=== PATIENT | male | born 1985 | race African-American/Black ===

== ENCOUNTER 2021-08-04 11:54 | Emergency (ER) | payer MEDICAID ==
[~2021-08-04] VITALS: Ht 175 cm; Wt 92.0 kg
[~2021-08-04 11:54] MED LIST: CYCL10TA25 PO; CYCL10TA9 PO; HYDR1TAB8 OP; NAPR-1071 PO; NAPR-243 PO; PRD20T PO
--- NOTE | 2021-08-04 12:04 | ED Lower Extremity ---
General Stated Complaint: L KNEE PAIN Source: patient Exam Limitations: no limitations History of Present Illness Date Seen by Provider: Aug 04, 2021 Time Seen by Provider: 12:00 Initial Comments To ER with left knee pain. He arrives by [facility]. He was at an event center for his nephew's birthday jumping on a trampoline with him. He came down and his knee stayed straight. The initial concern was for a kneecap dislocation as he has pain in the kneecap and is unable to extend his leg at the knee. Onset: just prior to arrival Severity: moderate Pain/Injury Location: left knee Method of Injury: other (Jumping) Allergies and Home Medications Allergies Coded Allergies: No Known Drug Allergies (Unverified , 03/05/12) Patient Home Medication List Home Medication List Reviewed: Yes Cyclobenzaprine HCl (Cyclobenzaprine HCl) 10 Mg Tablet, 10 MG PO Q8H PRN for SPASMS Prescribed by: BAMBI CANTOR on 05/13/161816 Hydrocodone Bit/Ibuprofen (Vicoprofen 200-7.5 Mg Tab) 1 Each Tablet, 1-2 EACH OP Q4-6HR PRN for PAIN Prescribed by: JANIA HOOD on 07/11/13 193 Hydrocodone/Acetaminophen (Hydrocodone-Acetamin 5-325 mg) 1 Each Tablet, 1 TAB PO Q4H PRN for PAIN-MODERATE (5-7) Prescribed by: JACOB JONES on 08/04/21 1240 Last Action: New Order Naproxen (Naprosyn) 500 Mg Tablet, 500 MG PO BID PRN for PAIN Prescribed by: BAMBI CANTOR on 05/13/161816 Prednisone (Prednisone) 20 Mg Tab, 40 MG PO DAILY Prescribed by: BAMBI CANTOR on 05/13/161816 Review of Systems Constitutional: see HPI EENTM: see HPI Respiratory: no symptoms reported Cardiovascular: no symptoms reported Genitourinary: no symptoms reported Musculoskeletal: no symptoms reported Skin: no symptoms reported Psychiatric/Neurological: No Symptoms Reported Past Qtnscsy-Gqnfgi-Txpuat Hx Seasonal Allergies Seasonal Allergies: No Past Medical History Asthma Family Medical History No Pertinent Family Hx Physical Exam Vital Signs Vital Signs - First Documented 08/04/21 11:55 Temp 36.4 Pulse 82 Resp 20 B/P (MAP) 134/66 (88) Pulse Ox 99 O2 Delivery Room Air Capillary Refill : Height, Weight, BMI Height: 5'10.00" Weight: 200lbs. oz. 90.967017em; 30.13 BMI Method:Stated General Appearance: WD/WN, no apparent distress, other (Alert and oriented no distress very pleasant. Offered pain medication but he declines.) HEENT: PERRL/EOMI, normal ENT inspection Neck: non-tender, full range of motion Respiratory: no respiratory distress, no accessory muscle use Gastrointestinal: normal bowel sounds, non tender, soft Hips: bilateral hip non-tender, bilateral hip normal inspection, bilateral hip normal range of motion Legs: bilateral leg non-tender, bilateral leg normal inspection, bilateral leg normal range of motion Knees: left knee other (He keeps his left leg straight at the knee and is unable to lift his heel off of the bed. The patella is high riding. He has a strong posterior tibial pulse with normal movement and sensation of the toes.) Ankles: bilateral ankle non-tender, bilateral ankle normal inspection, nohemi ateral ankle normal range of motion Feet: bilateral foot non-tender, bilateral foot normal inspection, bilateral foot normal range of motion Neurologic/Psychiatric: alert, normal mood/affect, oriented x 3 Skin: normal color, warm/dry Progress/Results/Core Measures Results/Orders My Orders Orders - JACOB JONES APRN Knee, Left, 3 Views (08/04/21 11:59) Knee Immobilizer (08/04/21 11:59) Crutches (08/04/21 11:59) Vital Signs/I&O 08/04/21 11:55 Temp 36.4 Pulse 82 Resp 20 B/P (MAP) 134/66 (88) Pulse Ox 99 O2 Delivery Room Air Departure Communication (Admissions) 1245-discussed with him the need for knee immobilizer and crutches and orthopedic follow-up. He agrees to call someone tomorrow from orthopedics. I offered him some pain medication though he declines stating that he only wants something to take if needed for severe pain at bedtime because he does not want to risk getting addicted. He agrees to have 5 hydrocodone called in. He will use Tylenol and ibuprofen during the day. Impression Primary Impression: Patellar tendon rupture Disposition: HOME, SELF-CARE Condition: Stable Departure-Patient Inst. Decision time for Depature: 12:02 Referrals: NO,LOCAL PHYSICIAN (PCP) Primary Care Physician PETER ADAMS MD, TERRY D MD ZAFUTA, MICHAEL P MD Patient Instructions: NO INSTRUCTIONS GIVEN Add. Discharge Instructions: Knee immobilizer on at all times except when showering. You should sleep with it on. Call an orthopedic surgeon of your choosing tomorrow to make an appointment to be seen for evaluation and treatment of this patellar tendon rupture. You could call all 3 of them and see which 1 can see you the soonest. Scripts Hydrocodone/Acetaminophen (Hydrocodone-Acetamin 5-325 mg) 1 Each Tablet 1 TAB PO Q4H PRN for PAIN-MODERATE (5-7), #5 TAB Prov: JACOB JONES APRN 08/04/21 JACOB JONES APRN Aug 04, 2021 12:04
[2021-08-04] MEDS ORDERED: ACHD5005 PO (12:40)
[2021-08-04 12:56] VITALS: BP 111/89
--- NOTE | 2021-08-04 13:29 | Diagnostic Imaging Report ---
EXAMINATION: Left knee 3 views HISTORY: Knee pain COMPARISON: None available. FINDINGS: The patella is elevated. No effusion. No fracture. Joint spaces are normal. IMPRESSION: 1. Elevated patella, correlate for any evidence of patellar tendon injury. 2. No fracture. Dictated by: Dictated on workstation # [id number]
[2021-08-07] MEDS ORDERED: ACET-2267 PO (13:55)
[2021-08-07] MEDS ORDERED: IBUP-2185 PO (13:55)
== END 2021-08-04 12:56 | disposition home or self-care (01) ==
LOC: EDUNIT# 11:54 → ER 11:56
DX: S76.112A Strain of left quadriceps muscle, fascia and tendon, initial encounter (principal); W09.8XXA Fall on or from other playground equipment, initial encounter; Y93.44 Activity, trampolining
CPT/HCPCS: 73562

== ENCOUNTER → 2021-08-06 | Outpatient (CLI) | payer MEDICAID ==
[~2021-08-06] MED LIST changes: +ACET-2267 PO; +ACHD5005 PO; +IBUP-2185 PO; +OXC5T PO
== END ==
LOC: ORTHO 14:00
PROVIDERS: ATTEND Orthopaedic Surgery
DX: S86.812A Strain of other muscle(s) and tendon(s) at lower leg level, left leg, initial encounter (principal); X58.XXXA Exposure to other specified factors, initial encounter
CPT/HCPCS: 99203

== ENCOUNTER 2021-08-08 05:29 | Outpatient (RCR) | payer MEDICAID ==
[~2021-08-08] VITALS: Ht 175.3 cm; Wt 90.8 kg
[~2021-08-08 05:29] MED LIST changes: -OXC5T PO
[2021-08-09] MEDS ORDERED: OXC5T PO (13:13)
== END 2021-08-08 12:27 | disposition home or self-care (01) ==
LOC: PREOP 05:29
PROVIDERS: ATTEND Orthopaedic Surgery
DX: Z01.812 Encounter for preprocedural laboratory examination (principal); S76.112A Strain of left quadriceps muscle, fascia and tendon, initial encounter; Z20.822 Contact with and (suspected) exposure to COVID-19
CPT/HCPCS: 87636

== ENCOUNTER → 2021-08-08 | Outpatient (CLI) | payer MEDICAID | LOC: LABNPT 06:03 | PROVIDERS: ATTEND Orthopaedic Surgery | DX: Z53.9 Procedure and treatment not carried out, unspecified reason (principal) ==

== ENCOUNTER 2021-08-09 09:35 | Day surgery (SDC) | payer MEDICAID ==
[~2021-08-09] VITALS: Ht 175.2 cm; Wt 92.3 kg
[2021-08-09] VITALS (12 sets, daily range): BP systolic 126–186; BP diastolic 79–104
[2021-08-09] MEDS ORDERED: ceFAZolin 2 GM IV Premixed 50 ML IV ONE (09:45)
[2021-08-09 10:27] LABS: AMPHETAMINE SCREEN, URINE NEGATIVE (NEGATIVE); BARBITURATE SCREEN URINE NEGATIVE (NEGATIVE); BENZODIAZEPINES SCREEN URINE NEGATIVE (NEGATIVE); CANNABINOID SCREEN, URINE POSITIVE (NEGATIVE); COCAINE SCREEN URINE NEGATIVE (NEGATIVE); METHADONE STAT NEGATIVE (NEGATIVE); METHAMPHETAMINE SCREEN URINE S NEGATIVE (NEGATIVE); OPIATE SCREEN URINE NEGATIVE (NEGATIVE); OXYCODONE STAT NEGATIVE (NEGATIVE); PROPOXYPHENE STAT NEGATIVE (NEGATIVE); TRICYCLIC ANTIDEPRESSANTS SCRE NEGATIVE (NEGATIVE)
[2021-08-09] MEDS ORDERED: ONDANSETRON 4 MG/2 ML (SDV) Z0FRAN ONE (10:30)
[2021-08-09] MEDS ORDERED: LIDOCAINE PF 2% 5 ML (XYLOCAINE) VIAL ONE (10:30)
[2021-08-09] MEDS ORDERED: proPOfol 200 MG/20 ML (DIPRIVAN) VIAL IV ONE ×2 (10:30→11:55)
[2021-08-09] MEDS ORDERED: MIDAZOLAM 2 MG/2 ML (VERSED) VIAL ONE (10:30)
[2021-08-09] MEDS ORDERED: fentaNYL INJ 100 MCG/2 ML AMP ONE ×2 (10:30→13:57)
--- NOTE | 2021-08-09 10:37 | Progress Note-Pre Operative ---
Pre-Operative Progress Note H&P Reviewed The H&P was reviewed, patient examined and no changes noted. Date Seen by Provider: Aug 09, 2021 Time Seen by Provider: 10:30 Date H&P Reviewed: Aug 09, 2021 Time H&P Reviewed: 10:30 Pre-Operative Diagnosis: Left Patellar Tendon Rupture PETER ADAMS MD Aug 09, 2021 10:37
[2021-08-09] MEDS ORDERED: BUPIVACAINE 0.25% 30 ML (SENSORCAINE) VIAL ONE (10:39)
[2021-08-09] MEDS ORDERED: LIDOCAINE/EPI 1%-1:200,000 (XYLOCAINE) 30 ML VIAL ONE (10:50)
[2021-08-09] MEDS: LACTATED RINGERS 1,000 ML IV PRN ×2 (11:28→13:30)
[2021-08-09] MEDS ORDERED: SEVOFLURANE (ULTANE) 15 ML INHAL SOLN ONE (13:13)
[2021-08-09] MEDS ORDERED: OXC5T PO (13:13)
[2021-08-09] MEDS ORDERED: PROMETHAZINE INJ 25 MG/ML (PHENERGAN) AMP ONE (13:21)
[2021-08-09] MEDS ORDERED: HYDROmorphone 2 MG/ML VIAL (DILAUDID) ONE (13:27)
[2021-08-09] MEDS ORDERED: MEPERIDINE (DEMEROL) INJ 50 MG/ML ONE (13:27)
[2021-08-09] MEDS ORDERED: PROMETHAZINE INJ 25 MG/ML (PHENERGAN) AMP IVP ONE (13:30)
[2021-08-09] MEDS ORDERED: ONDANSETRON 4 MG/2 ML (SDV) Z0FRAN IVP PRN (13:30)
[2021-08-09] MEDS ORDERED: HYDROmorphone 2 MG/ML VIAL (DILAUDID) IV ONE (13:30)
[2021-08-09] MEDS ORDERED: MEPERIDINE (DEMEROL) INJ 50 MG/ML IVP ONE (13:30)
[2021-08-09] MEDS ORDERED: morphine INJ 10 MG/ML 1ML (SYR OR VIAL) IVP ONE (13:30)
--- NOTE | 2021-08-09 13:33 | Operative Report - Ortho ---
Operative Report Surgeon (s)/Labor Contract Analyst (s) Surgeon PETER ADAMS MD Labor Contract Analyst n/a Pre-Operative Diagnosis Left Patellar Tendon Rupture Post-Operative Diagnosis same Operative Report Date of Procedure: Aug 09, 2021 Name of Procedure Performed: Repair of Left Patellar Tendon Rupture Description & Findings After obtaining informed consent and marking the patient in the preoperative holding area, patient received IV antibiotics. Patient was taken to the operating room. General and regional anesthesia were induced. Surgical timeout was taken. The left lower extremity was prepped and draped in the usual sterile fashion. Area of incision was injected with local anesthetic with epinephrine. Incision was made from mid-patella to tibial tubercle. Blunt dissection was carried down and the rupture site was easily identified. Rongeur was used to remove clot and create a trough in the inferior pole of the patella. Paratenon was divided and the patellar tendon was exposed. The area of rupture proximally was freshened with scissors. A Krackow suture of #5 Ethibond was placed medially in the tendon and then a second Krackow suture was placed laterally. A lateral hole was drilled through the patella and one arm of the lateral suture was passed. A central hole was drilled but once the drill reached the superior cortex of the patella, the drill bit failed and has a portion of lodged in the patella. The hole was enlarged with a size bigger drill bit so that the end could be visualized. A trephine-type instrument was then passed over the drill bit and the failed portion of the drill bit was removed. One limb from each Krackow suture was then passed centrally. A third hole was made medially and the last arm of suture was passed. Knee was brought into extension and a patellar clamp was used to put distal traction on the patella. Both sutures were tied and demonstrated tight repair of the tendon to the bone trough. #2 Fiberwire was used to perform retinacular repair. The wound was lavaged with normal saline. Knee was flexed to 90 degrees without gapping of the repair. Subcutaneous layer was repaired with 2-0 vicryl. Skin was repaired with ivanna. Wound was dressed with xeroform, 4x4s, ABD, webril, and BEVERLEY wrap. Patient tolerated the procedure well and was stable to the recovery room. Anesthesia Type General plus Regional Estimated Blood Loss 50 ml Specimen(s) collected/removed None PETER ADAMS MD Aug 09, 2021 13:33
== END 2021-08-09 15:40 | disposition home or self-care (01) ==
LOC: SDC 09:35
PROVIDERS: ATTEND Orthopaedic Surgery
DX: S76.112A Strain of left quadriceps muscle, fascia and tendon, initial encounter (principal); F17.210 Nicotine dependence, cigarettes, uncomplicated
CPT/HCPCS: 80306; 87081

== ENCOUNTER → 2021-08-13 | Outpatient (CLI) | payer MEDICAID ==
[~2021-08-13] MED LIST changes: +OXC5T PO
== END ==
LOC: ORTHO 09:51
PROVIDERS: ATTEND Orthopaedic Surgery
DX: Z47.89 Encounter for other orthopedic aftercare (principal)

== ENCOUNTER → 2021-08-27 | Outpatient (CLI) | payer MEDICAID | LOC: ORTHO 15:06 | PROVIDERS: ATTEND Orthopaedic Surgery | DX: Z47.89 Encounter for other orthopedic aftercare (principal) ==

== ENCOUNTER → 2021-09-24 | Outpatient (CLI) | payer MEDICAID ==
[~2021-09-24] MED LIST changes: +ERYT1OIN6 OP
== END ==
LOC: ORTHO 10:45
PROVIDERS: ATTEND Orthopaedic Surgery
DX: Z47.89 Encounter for other orthopedic aftercare (principal); Z98.890 Other specified postprocedural states

== ENCOUNTER 2021-09-27 13:05 | Emergency (ER) | payer MEDICAID ==
[~2021-09-27] VITALS: Ht 177.8 cm; Wt 92.9 kg
[~2021-09-27 13:05] MED LIST changes: -ERYT1OIN6 OP
[2021-09-27 13:10] VITALS: BP 126/84
[2021-09-27] MEDS ORDERED: FLUORESCEIN (FLUOR-I-STRIPS) 1 MG STRP OU ONE (13:15)
[2021-09-27] MEDS ORDERED: TETRACAINE 0.5% OPHTH SOLN 4 ML BTL (SINGLE DOSE ONLY) OU ONE (13:15)
[2021-09-27] MEDS ORDERED: BSS 15 ML IR ONE (13:15)
--- NOTE | 2021-09-27 13:16 | ED EENT ---
History of Present Illness General Stated Complaint: UNKNOWN OBJECT IN RIGHT EYE Source: patient Exam Limitations: no limitations History of Present Illness Date Seen by Provider: Sep 27, 2021 Time Seen by Provider: 13:10 Initial Comments Patient is a 36-year-old male who presents to the emergency department today with a chief complaint of foreign body sensation to the right eye. He was working yesterday smoking the, unloading wood when he felt like something got in his eye. He states it feels like it is moving around and he feels irritation at the upper part of his eye. A little blurry vision, nothing significant. No double vision no significant eye pain just irritation. Causes an excessive amount of watering. He does not take any medications. He attempted to flush it out with water. He does not wear corrective lenses. He cannot recall his last tetanus shot and declines updating that today. He is not a diabetic. All other review of systems reviewed and negative except as stated. Timing/Duration: abrupt Severity: mild Location: eye (R) Prearrival Treatment: no prearrival treatment Associated Symptoms: denies symptoms Allergies and Home Medications Allergies Coded Allergies: No Known Drug Allergies (Unverified , 03/05/12) Patient Home Medication List Home Medication List Reviewed: Yes Acetaminophen (Tylenol Extra Strength) 500 Mg Tablet, 500 MG PO PRN, (Reported) Entered as Reported by: MIRTHA GARDNER on 08/07/21 1355 Ibuprofen (Ibuprofen) 200 Mg Capsule, 200 MG PO PRN, (Reported) Entered as Reported by: MIRTHA GARDNER on 08/07/21 1355 Oxycodone Hcl (Oxyir Tablet) 5 Mg Tab, 5 MG PO Q4H PRN for PAIN-SEVERE (8-10) Prescribed by: PETER ADAMS MD on 08/09/21 1314 Review of Systems Review of Systems Constitutional: see HPI Eyes: Blurred Vision, Foreign Body Sensation, Pain Ears: No Symptoms Reported Nose: no symptoms reported Respiratory: no symptoms reported All Other Systems Reviewed Negative Unless Noted: Yes Past Mobrfta-Izxrfr-Cmfnsg Hx Immunizations Up To Date First/Initial COVID19 Vaccinat: NO Second COVID19 Vaccination Jagdeep: NO Third COVID19 Vaccination Date: NO Seasonal Allergies Seasonal Allergies: No Past Medical History Surgery/Hospitalization HX: PMH;DENIES. SURGERIES;DENIES. Surgeries: Yes (WISDOM TEETH) Respiratory: Yes (PRN INHALER USE) Asthma Currently Using CPAP: No Currently Using BIPAP: No Cardiac: Yes Neurological: No Genitourinary: No Gastrointestinal: No Musculoskeletal: Yes (LEFT HAND METACARPAL FRACTURES, ISSUES WITH LEFT KNEE) Endocrine: No HEENT: No Cancer: No Psychosocial: Yes PTSD, Depression Integumentary: No Blood Disorders: No Family Medical History No Pertinent Family Hx Physical Exam Vital Signs Vital Signs - First Documented 09/27/21 13:10 Temp 36.8 Pulse 85 Resp 18 B/P (MAP) 126/84 (98) Pulse Ox 97 Height, Weight, BMI Height: 5'10.00" Weight: 200lbs. oz. 90.180868ig; 30.07 BMI Method:Stated General Appearance: WD/WN, no apparent distress Eyes: bilateral eye normal inspection, bilateral eye PERRL, bilateral eye EOMI Nose: normal inspection Mouth/Throat: normal mouth inspection Respiratory: no respiratory distress, no accessory muscle use Neurologic/Psychiatric: alert, normal mood/affect, oriented x 3 Skin: normal color, warm/dry Procedures/Interventions Eye : Location: right eye Anesthesia (gtts): Tetracaine Intraocular Pressure: (R) eye (mm) Progress/Procedure Conclusion florescein stain to right eye shows 1-2mm abrasion at the edge of the iris at the 6 0'clock position. some slight uptake over the cornea at the superior medial margin. no obvious foreign body or metal or rust ring. Progress/Results/Core Measures Results/Orders My Orders Orders - JOSE MCKOY MD Tetracaine 0.5% Ophth [place] Sdv (Tetracai (09/27/21 13:15) Fluorescein Strips (Xkoav-D-Vkbgyl) (09/27/21 13:15) Balanced Salt Irrigation Soln (Bss Irrig (09/27/21 13:15) Vital Signs/I&O 09/27/21 13:10 Temp 36.8 Pulse 85 Resp 18 B/P (MAP) 126/84 (98) Pulse Ox 97 Progress Progress Note : Time: 13:30 Progress Note Discussed plan of care, follow-up and return precautions with the patient. We will send him home with antibiotic drops. I advised ibuprofen and/or Tylenol as needed for pain. He might patch his eye at night for comfort. Return precautions such as fever, increasing eye drainage, eyeball turning red, any other emergent concerning symptoms and he is to return to the emergency department for reevaluation. He is happy with plan of care. All questions have been sought and answered. Patient is stable for discharge. Departure Impression Primary Impression: Corneal abrasion Qualified Codes: S05.01XA - Injury of conjunctiva and corneal abrasion without foreign body, right eye, initial encounter Disposition: HOME, SELF-CARE Condition: Stable Departure-Patient Inst. Decision time for Depature: 13:32 Referrals: KELLY WOOD OD,LOCAL PHYSICIAN (PCP) Primary Care Physician Patient Instructions: Corneal Abrasion ED Add. Discharge Instructions: I have prescribed you an antibiotic ointment for your eye to help keep the eye moist more so than drops would do. Please use this 3-4 times daily for 5 days. [id number] ibuprofen, 3 tablets which is 600 mg every 6 hours as needed for pain. Always take this medication with food. Cool compresses may help with discomfort. You might consider taping your eye shut at night to help with discomfort also. This is completely optional. I have given you contact information for Dr. Junior's eye clinic. If you have any worsening pain especially with redness, fever, eye drainage please follow-up at that clinic or you are more than welcome to come back to the emergency department for reevaluation. Scripts Erythromycin Base (Erythromycin Opthalmic Ointment) 5 Mg/Gram (0.5 %) Oint...g. 0 OP Q4H for 5 Days, #1 EA 1/2 inch Prov: JOSE MCKOY MD 09/27/21 Images Eye 1 - Abrasion, Dye uptake (fluorescein) JOSE MCKOY MD Sep 27, 2021 13:15
[2021-09-27] MEDS ORDERED: ERYT1OIN6 OP (13:37)
== END 2021-09-27 13:42 | disposition home or self-care (01) ==
LOC: EDUNIT# 13:05 → ER 13:07
DX: S05.01XA Injury of conjunctiva and corneal abrasion without foreign body, right eye, initial encounter (principal); X58.XXXA Exposure to other specified factors, initial encounter
CPT/HCPCS: 99281

== ENCOUNTER 2021-10-03 08:00 | Outpatient (RCR) | payer MEDICAID ==
[~2021-10-03 08:00] MED LIST changes: +ERYT1OIN6 OP
== END 2021-10-05 | disposition home or self-care (01) ==
PROVIDERS: ATTEND Orthopaedic Surgery
DX: Z98.890 Other specified postprocedural states (principal)

== ENCOUNTER → 2021-10-08 | Outpatient (CLI) | payer MEDICAID | LOC: ORTHO 09:45 | PROVIDERS: ATTEND Orthopaedic Surgery | DX: Z47.89 Encounter for other orthopedic aftercare (principal) ==

== ENCOUNTER 2021-10-28 08:45 | Outpatient (RCR) | payer MEDICAID | END 2021-11-05 | disposition home or self-care (01) | PROVIDERS: ATTEND Orthopaedic Surgery | DX: Z98.890 Other specified postprocedural states (principal) ==